=== PATIENT | female | born 1955 | race Caucasian/White ===

== ENCOUNTER 2017-02-06 09:09 | Emergency (ER) | payer OTHER ==
[~2017-02-06] VITALS: Ht 157.5 cm; Wt 46.0 kg
[~2017-02-06 09:09] MED LIST: ACYC-113 PO; ACYC400T4 PO; BACL-19 PO; BUPR100T8 PO; HYDR12.58 PO; METH750T87 PO; MULT-26 PO; OMEP20CA9 PO; OMEP40CA6 PO; OXYB5TAB7 PO; OXYC-302 PO; PROP10TA PO; will bring list DOS
[2017-02-06] MEDS ORDERED: ONDANSETRON ODT 4 MG PO ONE (10:00)
[2017-02-06] MEDS ORDERED: ONDANSETRON ODT 4 MG ONE (10:23)
[2017-02-06 12:13] VITALS: BP 141/77
== END 2017-02-06 12:22 | disposition home or self-care (01) ==
LOC: ED 11:09
DX: S06.0X0A Concussion without loss of consciousness, initial encounter (principal); S00.11XA Contusion of right eyelid and periocular area, initial encounter; S93.401A Sprain of unspecified ligament of right ankle, initial encounter; H11.31 Conjunctival hemorrhage, right eye; K21.9 Gastro-esophageal reflux disease without esophagitis; W01.0XXA Fall on same level from slipping, tripping and stumbling without subsequent striking against object, initial encounter; Y93.89 Activity, other specified; Y92.89 Other specified places as the place of occurrence of the external cause; Y99.8 Other external cause status
CPT/HCPCS: 70450; 70486; 72125; 73590; 73610; 99284; Q0162

== ENCOUNTER → 2017-05-02 | Outpatient (CLI) | payer OTHER | END | disposition home or self-care (01) | LOC: CFH 08:25 | PROVIDERS: ATTEND Orthopaedic Surgery | DX: K80.20 Calculus of gallbladder without cholecystitis without obstruction (principal); K74.60 Unspecified cirrhosis of liver | CPT/HCPCS: 76700 ==

== ENCOUNTER → 2018-07-11 | Outpatient (CLI) | payer OTHER ==
[~2018-07-11] MED LIST changes: +ASCO500C10 PO; +FERR324T8 PO; +GABA100C PO; +OMNIPAQUE 350 MG/ML, 100ML BOTTLE ONE; +POLY119P4 PO
== END | disposition home or self-care (01) ==
LOC: CFH 11:06
PROVIDERS: ATTEND Internal Medicine
DX: K74.69 Other cirrhosis of liver (principal); R18.8 Other ascites; K80.50 Calculus of bile duct without cholangitis or cholecystitis without obstruction
CPT/HCPCS: 74177; Q9967

== ENCOUNTER 2018-11-12 13:48 | Emergency (ER) | payer OTHER ==
[~2018-11-12] VITALS: Ht 152.4 cm; Wt 57.0 kg
[~2018-11-12 13:48] MED LIST changes: -HYDR12.58 PO; +HYDROCHLOROTH12.5 MG PO; -OMNIPAQUE 350 MG/ML, 100ML BOTTLE ONE; -PROP10TA PO; +PROP10TA16 PO
[2018-11-12 13:56] VITALS: BP 128/68
--- NOTE | 2018-11-12 14:02 | NUR ---
LEFT KNEE PAIN S/P GROUND LEVEL MECAHNICAL FALL. TO XRAY
--- NOTE | 2018-11-12 14:37 | NUR ---
KNEE IMMOBILIZER APPLIED LEFT KNEE AND PROVIDED CRUTCHES AND TRAINING Addendum: 11/12/18 at 1438 by SOL KNEE IMMOBILIZER APPLIED LEFT KNEE. PT STATES SHE HAS CRUTCHES AT HOME
== END 2018-11-12 15:10 | disposition home or self-care (01) ==
LOC: ED 15:08
DX: S82.035A Nondisplaced transverse fracture of left patella, initial encounter for closed fracture (principal); K21.9 Gastro-esophageal reflux disease without esophagitis; W18.09XA Striking against other object with subsequent fall, initial encounter; Y93.89 Activity, other specified; Y92.89 Other specified places as the place of occurrence of the external cause; Y99.8 Other external cause status
CPT/HCPCS: 29505; 99283

== ENCOUNTER 2018-11-22 18:51 | Emergency (ER) | payer OTHER ==
[~2018-11-22] VITALS: Ht 157.5 cm; Wt 51.2 kg
[2018-11-22 19:02] VITALS: BP 149/87
[2018-11-22] MEDS ORDERED: LIDOCAINE-MPF 1%, 5ML ONE (19:26)
[2018-11-22] MEDS ORDERED: LIDOCAINE 1%, 10ML INFIL ONE (19:30)
--- NOTE | 2018-11-22 20:09 | NUR ---
STERILE GAUZE AND KERLIX WRAP PROVIDED FOR PT'S HEAD WOUND. D/C INSTRUCTIONS & F/U APPT RV'WD WITH PT AND . PT AMBULATED OUT OF ED WITH WITHOUT DIFFICULTY.
== END 2018-11-22 20:12 | disposition home or self-care (01) ==
LOC: ED 20:03
DX: S01.01XA Laceration without foreign body of scalp, initial encounter (principal); W22.8XXA Striking against or struck by other objects, initial encounter; Y93.89 Activity, other specified; Y92.89 Other specified places as the place of occurrence of the external cause; Y99.8 Other external cause status
CPT/HCPCS: 12031; 99284; J3490

== ENCOUNTER 2019-01-23 18:06 | Emergency (ER) | payer OTHER ==
[~2019-01-23] VITALS: Ht 157.5 cm; Wt 52.2 kg
[2019-01-23] MEDS ORDERED: TRAM50TA2 PO (18:19)
[2019-01-23] MEDS ORDERED: KETOROLAC 30 MG/1 ML ONE (18:23)
[2019-01-23] MEDS ORDERED: KETOROLAC 30 MG/1 ML IM ONE (18:30)
--- NOTE | 2019-01-23 18:44 | NUR ---
report given to Felix ZEPEDA
[2019-01-23 19:57] VITALS: BP 131/74
== END 2019-01-23 20:23 | disposition home or self-care (01) ==
LOC: ED 18:14
DX: M25.562 Pain in left knee (principal); K21.9 Gastro-esophageal reflux disease without esophagitis
CPT/HCPCS: 73564; 96372; 99283; J1885

== ENCOUNTER → 2019-02-12 | Outpatient (CLI) | payer OTHER ==
[~2019-02-12] MED LIST changes: +TRAM50TA2 PO
== END | disposition home or self-care (01) ==
LOC: CFH 13:59
PROVIDERS: ATTEND Family Medicine
DX: Z13.820 Encounter for screening for osteoporosis (principal); M81.0 Age-related osteoporosis without current pathological fracture
CPT/HCPCS: 77080